=== PATIENT | male | born 1970 | race Two or more races ===

== ENCOUNTER 2019-11-15 04:20 | Inpatient (IN) | payer MEDICAID, OTHER ==
[~2019-11-15] VITALS: Ht 154.9 cm; Wt 63.9 kg
[2019-11-15] VITALS (53 sets, daily range): BP systolic 88–145; BP diastolic 61–97
[2019-11-15 05:55] LABS: Basophils # (auto) 0 10 ^3/uL (0-0.2); Basophils % (auto) 0.2 % (0.0-2.0); Eosinophils # (auto) 0 10 ^3/uL (0-0.8); Eosinophils % (auto) 0.1 % (0.0-7.0); Hematocrit 40.6 % (41.0-53.0); Hemoglobin 14.4 g/dL (13.5-17.5); Lymphocytes # (auto) 0.5 10 ^3/uL (0.4-5.4); Lymphocytes % (auto) 3.4 % (10.0-50.0); Mean Corpuscular Hemoglobin 29.7 pg (28.0-32.0); Mean Corpuscular Hgb Conc. 35.6 g/dL (32.0-36.0); Mean Corpuscular Volume 83.5 fL (80.0-100.0); Monocytes # (auto) 0.4 10 ^3/uL (0-1.3); Monocytes % (auto) 2.6 % (0.0-12.0); Neutrophils # (auto) 14.3 10 ^3/uL (1.6-8.6); Neutrophils % (auto) 93.7 % (37.0-80.0); Platelet Count (auto) 384 10^3/uL (140-450); Red Blood Cells 4.86 10^6/uL (4.5-5.90); Red Cell Distribution Width 13.5 % (11.8-14.3); White Blood Cell 15.2 10^3/uL (4.4-10.8)
[2019-11-15 06:02] LABS: Lactic Acid w/Reflex 2.5 mmol/L (0.4-2.0)
[2019-11-15 06:06] LABS: Albumin 1.7 g/dL (3.4-5.0); Calcium 7.2 mg/dL (8.5-10.1); Potassium 3.4 mmol/L (3.5-5.1)
[2019-11-15 06:14] LABS: BUN/Creatinine Ratio 12.7; Bilirubin, Total 1.1 mg/dL (0.2-1.0); CRP High Sensitivity 15.6 mg/dL (< 0.3); Total Protein 6.5 g/dL (6.4-8.2)
[2019-11-15] MEDS ORDERED: SODIUM CHLORIDE 0.9% 1,000 ML IV ONE ×3 (06:39→06:45)
[2019-11-15] MEDS ORDERED: IOHEXOL 350 MG/ML 100ML IJ ONE (06:57)
[2019-11-15] MEDS ORDERED: DexAMETHasone SOD PHOS 10MG/1ML VIAL INJ IV ONE (07:00)
[2019-11-15] MEDS ORDERED: DOXYCYCLINE 100 MG TAB/CAP PO ONE (07:00)
[2019-11-15] MEDS ORDERED: ZINC SULFATE 220mg CAP or TAB PO ONE (07:00)
[2019-11-15] MEDS ORDERED: chlordiazePOXIDE HCL 25 MG CAP PO PRN (09:00)
[2019-11-15] MEDS ORDERED: SODIUM CHLORIDE 0.9% 1,000 ML IV SCH (09:00)
[2019-11-15] MEDS ORDERED: MORPHINE SULF INJ 2 MG/ML SYRINGE 1ML IV PRN ×3 (09:00)
[2019-11-15] MEDS ORDERED: DEXTROSE (50%) 50ML SYRG IV PRN (09:00)
[2019-11-15] MEDS ORDERED: NITROGLYCERIN 0.4 MG SL TAB SL PRN (09:00)
[2019-11-15] MEDS ORDERED: THIAMINE 100mg/ml INJ (200mg/2ml VIAL) IV ONE (09:00)
[2019-11-15] MEDS ORDERED: LORazepam 2MG/ML-1ML VIAL IV PRN ×2 (09:00→09:05)
[2019-11-15] MEDS ORDERED: PROMETHAZINE HCL 25 MG/ML 1ML IV PRN (09:00)
[2019-11-15] MEDS: BUDESONIDE (INHALATION) 180 MCG IH IN SCH ×2 (10:00→23:11)
[2019-11-15] MEDS ORDERED: levoFLOXacin 500MG 100 ML IV SCH (10:00)
[2019-11-15] MEDS ORDERED: ENOXAPARIN SOD 40 MG/0.4 ML SYRINGE SC SCH (10:00)
[2019-11-15 10:26] LABS: INR 1.2 (0.9-1.15)
[2019-11-15] MEDS: ZINC SULFATE 220mg CAP or TAB PO SCH (10:43)
[2019-11-15] MEDS: InsuLIN REG 1unit/0.01ml Soln (100units/ml) SC SCH ×3 (11:30→23:20)
[2019-11-15] MEDS: ACCU-CHEK COMFORT CURVE STRIP VI SCH ×3 (11:30→22:00)
[2019-11-15] MEDS: DexAMETHasone SOD PHOS 10MG/1ML VIAL INJ IV SCH (11:45)
[2019-11-15] MEDS: chlordiazePOXIDE HCL 5 MG CAP PO SCH ×2 (13:22→18:05)
[2019-11-15] MEDS: ALBUTEROL SULF HFA 90MCG INH 200DOSE IN SCH ×2 (14:50→23:11)
[2019-11-15 15:14] LABS: Urine WBC None Seen /hpf (0 - 3)
[2019-11-15 15:37] LABS: Urine Bacteria NONE SEEN /hpf (None Seen); Urine Blood 1+ /uL (Negative); Urine Hyaline Cast FEW /lpf (0 - 2); Urine Specific Gravity 1.046 (1.001-1.035)
[2019-11-15] MEDS: CLINDAMYCIN 600MG IV 50 ML IV SCH ×2 (16:00→22:41)
[2019-11-15] MEDS ORDERED: POTASSIUM EFFERVESENT TAB 25 MEQ PO ONE (21:45)
[2019-11-16] VITALS (67 sets, daily range): BP systolic 87–147; BP diastolic 55–97
[2019-11-16] MEDS: chlordiazePOXIDE HCL 5 MG CAP PO SCH ×2 (00:22→06:25)
[2019-11-16 04:10] LABS: Basophils # (auto) 0 10 ^3/uL (0-0.2); Basophils % (auto) 0.3 % (0.0-2.0); Eosinophils # (auto) 0 10 ^3/uL (0-0.8); Hematocrit 41.9 % (41.0-53.0); Hemoglobin 14.8 g/dL (13.5-17.5); Lymphocytes # (auto) 0.7 10 ^3/uL (0.4-5.4); Lymphocytes % (auto) 4.6 % (10.0-50.0); Mean Corpuscular Hemoglobin 29.8 pg (28.0-32.0); Mean Corpuscular Hgb Conc. 35.4 g/dL (32.0-36.0); Mean Corpuscular Volume 84.3 fL (80.0-100.0); Monocytes # (auto) 0.5 10 ^3/uL (0-1.3); Monocytes % (auto) 3.1 % (0.0-12.0); Neutrophils # (auto) 14.9 10 ^3/uL (1.6-8.6); Nucleated Red Blood Cells % 0.2 %; Platelet Count (auto) 386 10^3/uL (140-450); Red Blood Cells 4.97 10^6/uL (4.5-5.90); Red Cell Distribution Width 13.7 % (11.8-14.3); White Blood Cell 16.2 10^3/uL (4.4-10.8)
[2019-11-16 04:24] LABS: Albumin 1.7 g/dL (3.4-5.0); Calcium 7.7 mg/dL (8.5-10.1); Potassium 4.1 mmol/L (3.5-5.1)
[2019-11-16 04:27] LABS: BUN/Creatinine Ratio 13.1; Bilirubin, Total 0.6 mg/dL (0.2-1.0); Total Protein 6.7 g/dL (6.4-8.2)
[2019-11-16] MEDS: CLINDAMYCIN 600MG IV 50 ML IV SCH (06:26)
[2019-11-16] MEDS: ACCU-CHEK COMFORT CURVE STRIP VI SCH ×4 (06:26→21:21)
[2019-11-16] MEDS: InsuLIN REG 1unit/0.01ml Soln (100units/ml) SC SCH ×4 (06:31→21:29)
[2019-11-16] MEDS: ALBUTEROL SULF HFA 90MCG INH 200DOSE IN SCH ×3 (06:32→21:06)
[2019-11-16] MEDS: BUDESONIDE (INHALATION) 180 MCG IH IN SCH ×2 (07:29→21:06)
[2019-11-16] MEDS ORDERED: THIAMINE 100mg/ml INJ (200mg/2ml VIAL) IV SCH (10:00)
[2019-11-16] MEDS ORDERED: POTASSIUM CHL 20 Meq TABLET PO ONE (10:15)
[2019-11-16] MEDS ORDERED: FUROSEMIDE 40 MG/4 ML VIAL IV ONE (10:15)
[2019-11-16] MEDS ORDERED: MULTIPLE VITAMINS W/ MINERALS TAB PO ONE (10:15)
[2019-11-16] MEDS ORDERED: THIAMINE HCL 100 MG TAB PO ONE (10:15)
[2019-11-16] MEDS ORDERED: ENOXAPARIN SOD 80 MG/0.8ML SYRINGE SC ONE (10:30)
[2019-11-16] MEDS: DexAMETHasone SOD PHOS 10MG/1ML VIAL INJ IV SCH (11:04)
[2019-11-16] MEDS: ZINC SULFATE 220mg CAP or TAB PO SCH (11:05)
[2019-11-16] MEDS: levoFLOXacin 750MG 150 ML IV SCH (11:27)
[2019-11-16] MEDS: diphenhdrAMINE HCL 50 MG/1 ML VL IV SCH ×2 (11:32→22:58)
[2019-11-16] MEDS: ACETAMINOPHEN 650 mg PER 20 mL UD PO SCH ×2 (11:32→23:05)
[2019-11-16] MEDS ORDERED: levoFLOXacin 750MG 150 ML IV ONE (13:00)
[2019-11-16] MEDS: TOCILIZUMAB 400 MG in SODIUM CHL 0.9% 80 ML IV SCH ×2 (14:04→23:44)
[2019-11-16] MEDS ORDERED: REMDESIVIR 200 MG in NS 210ml LOADING DOSE ADULT IV ONE (17:00)
[2019-11-16] MEDS: FUROSEMIDE 40 MG/4 ML VIAL IV SCH (17:57)
[2019-11-16] MEDS: Glucerna Carbsteady SHAKE Vanilla 8oz PO SCH (18:00)
[2019-11-16] MEDS: POTASSIUM CHL 20 Meq TABLET PO SCH (21:21)
[2019-11-16] MEDS: ENOXAPARIN SOD 80 MG/0.8ML SYRINGE SC SCH (21:21)
[2019-11-16] MEDS ORDERED: methylPREDNISolone SOD SUCC 40 MG/ML VL IV ONE (22:45)
[2019-11-17] VITALS (8 sets, daily range): BP systolic 94–112; BP diastolic 65–85
[2019-11-17 03:28] LABS: Basophils # (auto) 0 10 ^3/uL (0-0.2); Basophils % (auto) 0.1 % (0.0-2.0); Eosinophils # (auto) 0 10 ^3/uL (0-0.8); Hematocrit 37.3 % (41.0-53.0); Lymphocytes # (auto) 0.4 10 ^3/uL (0.4-5.4); Lymphocytes % (auto) 3.8 % (10.0-50.0); Mean Corpuscular Hemoglobin 29.6 pg (28.0-32.0); Mean Corpuscular Hgb Conc. 34.9 g/dL (32.0-36.0); Monocytes # (auto) 0.2 10 ^3/uL (0-1.3); Monocytes % (auto) 1.7 % (0.0-12.0); Neutrophils # (auto) 9.6 10 ^3/uL (1.6-8.6); Neutrophils % (auto) 94.4 % (37.0-80.0); Platelet Count (auto) 322 10^3/uL (140-450); Red Blood Cells 4.38 10^6/uL (4.5-5.90); Red Cell Distribution Width 13.4 % (11.8-14.3); White Blood Cell 10.2 10^3/uL (4.4-10.8)
[2019-11-17 03:49] LABS: Albumin 1.4 g/dL (3.4-5.0); Calcium 7.5 mg/dL (8.5-10.1)
[2019-11-17 03:53] LABS: BUN/Creatinine Ratio 34.1; Bilirubin, Total 0.4 mg/dL (0.2-1.0); Total Protein 5.5 g/dL (6.4-8.2)
[2019-11-17] MEDS: FUROSEMIDE 40 MG/4 ML VIAL IV SCH ×2 (06:00→18:27)
[2019-11-17] MEDS: ALBUTEROL SULF HFA 90MCG INH 200DOSE IN SCH ×2 (07:25→21:25)
[2019-11-17] MEDS: BUDESONIDE (INHALATION) 180 MCG IH IN SCH ×2 (07:26→21:26)
[2019-11-17] MEDS: ACCU-CHEK COMFORT CURVE STRIP VI SCH ×4 (07:41→23:33)
[2019-11-17] MEDS: InsuLIN REG 1unit/0.01ml Soln (100units/ml) SC SCH ×4 (07:42→22:00)
[2019-11-17] MEDS: levoFLOXacin 750MG 150 ML IV SCH (09:35)
[2019-11-17] MEDS: ENOXAPARIN SOD 80 MG/0.8ML SYRINGE SC SCH ×2 (09:36→23:33)
[2019-11-17] MEDS: ZINC SULFATE 220mg CAP or TAB PO SCH (09:36)
[2019-11-17] MEDS: MULTIPLE VITAMINS W/ MINERALS TAB PO SCH (09:36)
[2019-11-17] MEDS: THIAMINE HCL 100 MG TAB PO SCH (09:36)
[2019-11-17] MEDS: POTASSIUM CHL 20 Meq TABLET PO SCH ×2 (09:37→23:32)
[2019-11-17] MEDS: Glucerna Carbsteady SHAKE Vanilla 8oz PO SCH ×2 (09:37→18:00)
[2019-11-17] MEDS ORDERED: DexAMETHasone 4 MG TAB PO ONE (13:45)
[2019-11-17] MEDS: REMDESIVIR 100mg in NS 230ml DAILYx4DAYS (NO VENT) IV SCH (17:05)
[2019-11-18] VITALS (10 sets, daily range): BP systolic 95–107; BP diastolic 58–74
[2019-11-18 04:15] LABS: Basophils # (auto) 0 10 ^3/uL (0-0.2); Basophils % (auto) 0.1 % (0.0-2.0); Eosinophils # (auto) 0.1 10 ^3/uL (0-0.8); Eosinophils % (auto) 1.3 % (0.0-7.0); Hematocrit 42.8 % (41.0-53.0); Hemoglobin 14.8 g/dL (13.5-17.5); Lymphocytes # (auto) 0.9 10 ^3/uL (0.4-5.4); Mean Corpuscular Hemoglobin 29.8 pg (28.0-32.0); Mean Corpuscular Hgb Conc. 34.5 g/dL (32.0-36.0); Mean Corpuscular Volume 86.5 fL (80.0-100.0); Monocytes # (auto) 0.3 10 ^3/uL (0-1.3); Monocytes % (auto) 3.2 % (0.0-12.0); Neutrophils # (auto) 7.2 10 ^3/uL (1.6-8.6); Neutrophils % (auto) 84.4 % (37.0-80.0); Nucleated Red Blood Cells % 0.2 %; Platelet Count (auto) 367 10^3/uL (140-450); Red Blood Cells 4.95 10^6/uL (4.5-5.90); Red Cell Distribution Width 13.9 % (11.8-14.3); White Blood Cell 8.5 10^3/uL (4.4-10.8)
[2019-11-18 04:27] LABS: Albumin 1.7 g/dL (3.4-5.0); Calcium 7.4 mg/dL (8.5-10.1); Potassium 4.1 mmol/L (3.5-5.1)
[2019-11-18 04:30] LABS: BUN/Creatinine Ratio 41.7
[2019-11-18 04:33] LABS: Bilirubin, Total 0.4 mg/dL (0.2-1.0); Total Protein 5.9 g/dL (6.4-8.2)
[2019-11-18] MEDS: ALBUTEROL SULF HFA 90MCG INH 200DOSE IN SCH ×3 (06:21→22:00)
[2019-11-18] MEDS: BUDESONIDE (INHALATION) 180 MCG IH IN SCH ×2 (06:21→22:00)
[2019-11-18] MEDS: ACCU-CHEK COMFORT CURVE STRIP VI SCH ×4 (07:00→23:46)
[2019-11-18] MEDS: InsuLIN REG 1unit/0.01ml Soln (100units/ml) SC SCH ×4 (07:00→23:47)
[2019-11-18] MEDS: Glucerna Carbsteady SHAKE Vanilla 8oz PO SCH ×2 (08:00→18:26)
[2019-11-18] MEDS: FUROSEMIDE 40 MG/4 ML VIAL IV SCH ×2 (09:09→18:00)
[2019-11-18] MEDS: ZINC SULFATE 220mg CAP or TAB PO SCH (10:00)
[2019-11-18] MEDS: ENOXAPARIN SOD 80 MG/0.8ML SYRINGE SC SCH ×2 (10:00→23:46)
[2019-11-18] MEDS: POTASSIUM CHL 20 Meq TABLET PO SCH ×2 (10:00→23:45)
[2019-11-18] MEDS: MULTIPLE VITAMINS W/ MINERALS TAB PO SCH (10:00)
[2019-11-18] MEDS: DexAMETHasone 4 MG TAB PO SCH (12:59)
[2019-11-18] MEDS: THIAMINE HCL 100 MG TAB PO SCH (12:59)
[2019-11-18] MEDS: levoFLOXacin 750MG 150 ML IV SCH (12:59)
[2019-11-18] MEDS: REMDESIVIR 100mg in NS 230ml DAILYx4DAYS (NO VENT) IV SCH (16:43)
[2019-11-19] VITALS (10 sets, daily range): BP systolic 89–114; BP diastolic 60–78
[2019-11-19 04:06] LABS: Basophils # (auto) 0 10 ^3/uL (0-0.2); Basophils % (auto) 0.2 % (0.0-2.0); Eosinophils # (auto) 0.1 10 ^3/uL (0-0.8); Eosinophils % (auto) 0.7 % (0.0-7.0); Hematocrit 41.6 % (41.0-53.0); Hemoglobin 14.2 g/dL (13.5-17.5); Lymphocytes # (auto) 0.7 10 ^3/uL (0.4-5.4); Lymphocytes % (auto) 8.9 % (10.0-50.0); Mean Corpuscular Hemoglobin 29.7 pg (28.0-32.0); Mean Corpuscular Hgb Conc. 34.1 g/dL (32.0-36.0); Mean Corpuscular Volume 87.2 fL (80.0-100.0); Monocytes # (auto) 0.2 10 ^3/uL (0-1.3); Neutrophils # (auto) 6.9 10 ^3/uL (1.6-8.6); Neutrophils % (auto) 87.2 % (37.0-80.0); Nucleated Red Blood Cells % 0.2 %; Platelet Count (auto) 347 10^3/uL (140-450); Red Blood Cells 4.78 10^6/uL (4.5-5.90); Red Cell Distribution Width 13.8 % (11.8-14.3); White Blood Cell 7.9 10^3/uL (4.4-10.8)
[2019-11-19 04:23] LABS: Albumin 1.8 g/dL (3.4-5.0); Calcium 7.6 mg/dL (8.5-10.1); Potassium 4.8 mmol/L (3.5-5.1)
[2019-11-19 04:26] LABS: BUN/Creatinine Ratio 37.8; Bilirubin, Total 0.4 mg/dL (0.2-1.0); Total Protein 5.7 g/dL (6.4-8.2)
[2019-11-19] MEDS: ALBUTEROL SULF HFA 90MCG INH 200DOSE IN SCH ×3 (06:23→21:52)
[2019-11-19] MEDS: BUDESONIDE (INHALATION) 180 MCG IH IN SCH ×2 (06:24→21:51)
[2019-11-19] MEDS: ACCU-CHEK COMFORT CURVE STRIP VI SCH ×4 (06:41→22:35)
[2019-11-19] MEDS: FUROSEMIDE 40 MG/4 ML VIAL IV SCH ×2 (06:42→18:00)
[2019-11-19] MEDS: InsuLIN REG 1unit/0.01ml Soln (100units/ml) SC SCH ×4 (06:42→22:00)
[2019-11-19] MEDS: Glucerna Carbsteady SHAKE Vanilla 8oz PO SCH (08:00)
[2019-11-19] MEDS: ENOXAPARIN SOD 80 MG/0.8ML SYRINGE SC SCH ×2 (10:00→22:35)
[2019-11-19] MEDS: MULTIPLE VITAMINS W/ MINERALS TAB PO SCH (10:17)
[2019-11-19] MEDS: levoFLOXacin 750MG 150 ML IV SCH (10:17)
[2019-11-19] MEDS: DexAMETHasone 4 MG TAB PO SCH (10:17)
[2019-11-19] MEDS: THIAMINE HCL 100 MG TAB PO SCH (10:17)
[2019-11-19] MEDS: POTASSIUM CHL 20 Meq TABLET PO SCH ×2 (10:17→22:34)
[2019-11-19] MEDS: ZINC SULFATE 220mg CAP or TAB PO SCH (10:17)
[2019-11-19] MEDS: Ensure HIGH Protein Chocolate 8oz Bottle PO SCH ×2 (12:00→18:12)
[2019-11-19] MEDS: REMDESIVIR 100mg in NS 230ml DAILYx4DAYS (NO VENT) IV SCH (17:00)
[2019-11-19] MEDS: DexAMETHasone SOD PHOS 10MG/1ML VIAL INJ IV SCH (22:34)
[2019-11-20] VITALS (12 sets, daily range): BP systolic 91–119; BP diastolic 58–83
[2019-11-20 05:22] LABS: Basophils # (auto) 0 10 ^3/uL (0-0.2); Eosinophils # (auto) 0 10 ^3/uL (0-0.8); Eosinophils % (auto) 0.1 % (0.0-7.0); Hematocrit 44.1 % (41.0-53.0); Hemoglobin 14.5 g/dL (13.5-17.5); Lymphocytes # (auto) 0.5 10 ^3/uL (0.4-5.4); Lymphocytes % (auto) 5.8 % (10.0-50.0); Mean Corpuscular Hemoglobin 29.1 pg (28.0-32.0); Mean Corpuscular Volume 88.2 fL (80.0-100.0); Monocytes # (auto) 0.1 10 ^3/uL (0-1.3); Monocytes % (auto) 1.6 % (0.0-12.0); Neutrophils # (auto) 8.7 10 ^3/uL (1.6-8.6); Neutrophils % (auto) 92.5 % (37.0-80.0); Platelet Count (auto) 310 10^3/uL (140-450); Red Cell Distribution Width 13.7 % (11.8-14.3); White Blood Cell 9.4 10^3/uL (4.4-10.8)
[2019-11-20 05:34] LABS: Albumin 2.1 g/dL (3.4-5.0); Calcium 7.9 mg/dL (8.5-10.1); Potassium 5.2 mmol/L (3.5-5.1)
[2019-11-20 05:37] LABS: BUN/Creatinine Ratio 33.9; Bilirubin, Total 0.5 mg/dL (0.2-1.0); Total Protein 5.9 g/dL (6.4-8.2)
[2019-11-20] MEDS: ALBUTEROL SULF HFA 90MCG INH 200DOSE IN SCH ×3 (06:40→22:00)
[2019-11-20] MEDS: BUDESONIDE (INHALATION) 180 MCG IH IN SCH ×2 (06:40→22:00)
[2019-11-20] MEDS: ACCU-CHEK COMFORT CURVE STRIP VI SCH ×4 (06:56→22:03)
[2019-11-20] MEDS: InsuLIN REG 1unit/0.01ml Soln (100units/ml) SC SCH ×4 (07:00→22:03)
[2019-11-20] MEDS: FUROSEMIDE 40 MG/4 ML VIAL IV SCH ×2 (07:50→18:00)
[2019-11-20] MEDS: Ensure HIGH Protein Chocolate 8oz Bottle PO SCH ×3 (08:00→18:00)
[2019-11-20] MEDS: MULTIPLE VITAMINS W/ MINERALS TAB PO SCH (10:00)
[2019-11-20] MEDS: THIAMINE HCL 100 MG TAB PO SCH (10:00)
[2019-11-20] MEDS: levoFLOXacin 750MG 150 ML IV SCH (10:00)
[2019-11-20] MEDS: ENOXAPARIN SOD 80 MG/0.8ML SYRINGE SC SCH ×2 (10:00→22:03)
[2019-11-20] MEDS: DexAMETHasone SOD PHOS 10MG/1ML VIAL INJ IV SCH ×2 (10:00→22:03)
[2019-11-20] MEDS: ZINC SULFATE 220mg CAP or TAB PO SCH (10:00)
[2019-11-20] MEDS: POTASSIUM CHL 20 Meq TABLET PO SCH (10:00)
[2019-11-20] MEDS: REMDESIVIR 100mg in NS 230ml DAILYx4DAYS (NO VENT) IV SCH (17:01)
[2019-11-21] VITALS (14 sets, daily range): BP systolic 90–112; BP diastolic 46–83
[2019-11-21 04:14] LABS: Basophils # (auto) 0 10 ^3/uL (0-0.2); Basophils % (auto) 0.4 % (0.0-2.0); Eosinophils # (auto) 0 10 ^3/uL (0-0.8); Eosinophils % (auto) 0.2 % (0.0-7.0); Hematocrit 43.8 % (41.0-53.0); Hemoglobin 14.6 g/dL (13.5-17.5); Lymphocytes # (auto) 0.6 10 ^3/uL (0.4-5.4); Lymphocytes % (auto) 5.2 % (10.0-50.0); Mean Corpuscular Hemoglobin 28.8 pg (28.0-32.0); Mean Corpuscular Hgb Conc. 33.4 g/dL (32.0-36.0); Mean Corpuscular Volume 86.2 fL (80.0-100.0); Monocytes # (auto) 0.3 10 ^3/uL (0-1.3); Monocytes % (auto) 2.6 % (0.0-12.0); Neutrophils # (auto) 10.2 10 ^3/uL (1.6-8.6); Neutrophils % (auto) 91.6 % (37.0-80.0); Nucleated Red Blood Cells % 0.1 %; Platelet Count (auto) 289 10^3/uL (140-450); Red Blood Cells 5.08 10^6/uL (4.5-5.90); Red Cell Distribution Width 13.7 % (11.8-14.3); White Blood Cell 11.1 10^3/uL (4.4-10.8)
[2019-11-21 04:34] LABS: Albumin 2.3 g/dL (3.4-5.0); Calcium 7.7 mg/dL (8.5-10.1); Potassium 4.2 mmol/L (3.5-5.1)
[2019-11-21 04:37] LABS: BUN/Creatinine Ratio 42.9; Bilirubin, Total 0.5 mg/dL (0.2-1.0); Total Protein 6.1 g/dL (6.4-8.2)
[2019-11-21] MEDS: ACCU-CHEK COMFORT CURVE STRIP VI SCH ×4 (06:02→21:17)
[2019-11-21] MEDS: InsuLIN REG 1unit/0.01ml Soln (100units/ml) SC SCH ×4 (06:02→21:20)
[2019-11-21] MEDS: FUROSEMIDE 40 MG/4 ML VIAL IV SCH ×2 (06:03→18:02)
[2019-11-21] MEDS: ALBUTEROL SULF HFA 90MCG INH 200DOSE IN SCH ×3 (07:58→22:46)
[2019-11-21] MEDS: BUDESONIDE (INHALATION) 180 MCG IH IN SCH ×2 (07:58→22:46)
[2019-11-21] MEDS: Ensure HIGH Protein Chocolate 8oz Bottle PO SCH ×3 (08:00→18:05)
[2019-11-21] MEDS: levoFLOXacin 750MG 150 ML IV SCH (10:00)
[2019-11-21] MEDS: ENOXAPARIN SOD 80 MG/0.8ML SYRINGE SC SCH ×2 (10:00→21:17)
[2019-11-21] MEDS: THIAMINE HCL 100 MG TAB PO SCH (10:00)
[2019-11-21] MEDS: ZINC SULFATE 220mg CAP or TAB PO SCH (10:00)
[2019-11-21] MEDS: MULTIPLE VITAMINS W/ MINERALS TAB PO SCH (10:00)
[2019-11-21] MEDS: DexAMETHasone SOD PHOS 10MG/1ML VIAL INJ IV SCH ×2 (10:00→21:16)
[2019-11-22] VITALS (10 sets, daily range): BP systolic 100–112; BP diastolic 63–83
[2019-11-22 06:23] LABS: Basophils # (auto) 0 10 ^3/uL (0-0.2); Basophils % (auto) 0.2 % (0.0-2.0); Eosinophils # (auto) 0 10 ^3/uL (0-0.8); Eosinophils % (auto) 0.1 % (0.0-7.0); Hematocrit 45.8 % (41.0-53.0); Hemoglobin 15.5 g/dL (13.5-17.5); Lymphocytes # (auto) 0.8 10 ^3/uL (0.4-5.4); Lymphocytes % (auto) 7.5 % (10.0-50.0); Mean Corpuscular Hemoglobin 29.6 pg (28.0-32.0); Mean Corpuscular Hgb Conc. 33.7 g/dL (32.0-36.0); Mean Corpuscular Volume 87.7 fL (80.0-100.0); Monocytes # (auto) 0.5 10 ^3/uL (0-1.3); Monocytes % (auto) 4.5 % (0.0-12.0); Neutrophils # (auto) 9.1 10 ^3/uL (1.6-8.6); Neutrophils % (auto) 87.7 % (37.0-80.0); Nucleated Red Blood Cells % 0.5 %; Platelet Count (auto) 264 10^3/uL (140-450); Red Blood Cells 5.23 10^6/uL (4.5-5.90); Red Cell Distribution Width 13.9 % (11.8-14.3); White Blood Cell 10.4 10^3/uL (4.4-10.8)
[2019-11-22] MEDS: FUROSEMIDE 40 MG/4 ML VIAL IV SCH ×2 (06:30→17:46)
[2019-11-22] MEDS: ACCU-CHEK COMFORT CURVE STRIP VI SCH ×4 (06:30→22:00)
[2019-11-22] MEDS: InsuLIN REG 1unit/0.01ml Soln (100units/ml) SC SCH ×4 (06:33→22:00)
[2019-11-22 06:44] LABS: Albumin 2.5 g/dL (3.4-5.0); Potassium 4.1 mmol/L (3.5-5.1)
[2019-11-22 06:48] LABS: BUN/Creatinine Ratio 46.7; Bilirubin, Total 0.6 mg/dL (0.2-1.0); Total Protein 6.2 g/dL (6.4-8.2)
[2019-11-22] MEDS: Ensure HIGH Protein Chocolate 8oz Bottle PO SCH ×3 (08:00→17:32)
[2019-11-22] MEDS: levoFLOXacin 750MG 150 ML IV SCH (09:13)
[2019-11-22] MEDS: DexAMETHasone SOD PHOS 10MG/1ML VIAL INJ IV SCH ×2 (09:13→22:00)
[2019-11-22] MEDS: THIAMINE HCL 100 MG TAB PO SCH (09:13)
[2019-11-22] MEDS: ENOXAPARIN SOD 80 MG/0.8ML SYRINGE SC SCH ×2 (09:14→22:00)
[2019-11-22] MEDS: MULTIPLE VITAMINS W/ MINERALS TAB PO SCH (09:14)
[2019-11-22] MEDS: ZINC SULFATE 220mg CAP or TAB PO SCH (09:14)
[2019-11-22] MEDS: ALBUTEROL SULF HFA 90MCG INH 200DOSE IN SCH ×3 (10:14→21:56)
[2019-11-22] MEDS: BUDESONIDE (INHALATION) 180 MCG IH IN SCH ×2 (10:14→21:56)
[2019-11-22] MEDS: chlordiazePOXIDE HCL 5 MG CAP PO SCH ×2 (17:46→22:00)
[2019-11-23] VITALS (12 sets, daily range): BP systolic 93–120; BP diastolic 63–91
[2019-11-23 03:15] LABS: Basophils # (auto) 0.1 10 ^3/uL (0-0.2); Basophils % (auto) 0.6 % (0.0-2.0); Eosinophils # (auto) 0 10 ^3/uL (0-0.8); Eosinophils % (auto) 0.2 % (0.0-7.0); Hematocrit 46.5 % (41.0-53.0); Hemoglobin 15.7 g/dL (13.5-17.5); Lymphocytes # (auto) 0.8 10 ^3/uL (0.4-5.4); Lymphocytes % (auto) 7.7 % (10.0-50.0); Mean Corpuscular Hemoglobin 29.5 pg (28.0-32.0); Mean Corpuscular Hgb Conc. 33.7 g/dL (32.0-36.0); Mean Corpuscular Volume 87.6 fL (80.0-100.0); Monocytes # (auto) 0.3 10 ^3/uL (0-1.3); Monocytes % (auto) 2.6 % (0.0-12.0); Neutrophils # (auto) 9.6 10 ^3/uL (1.6-8.6); Neutrophils % (auto) 88.9 % (37.0-80.0); Platelet Count (auto) 230 10^3/uL (140-450); Red Blood Cells 5.31 10^6/uL (4.5-5.90); White Blood Cell 10.8 10^3/uL (4.4-10.8)
[2019-11-23 03:31] LABS: Albumin 2.5 g/dL (3.4-5.0); Calcium 7.9 mg/dL (8.5-10.1); Potassium 3.8 mmol/L (3.5-5.1)
[2019-11-23 03:35] LABS: BUN/Creatinine Ratio 56.9; Bilirubin, Total 0.5 mg/dL (0.2-1.0)
[2019-11-23] MEDS: ALBUTEROL SULF HFA 90MCG INH 200DOSE IN SCH ×3 (05:57→22:00)
[2019-11-23] MEDS: BUDESONIDE (INHALATION) 180 MCG IH IN SCH ×2 (05:57→22:00)
[2019-11-23] MEDS: FUROSEMIDE 40 MG/4 ML VIAL IV SCH ×2 (06:00→18:08)
[2019-11-23] MEDS: chlordiazePOXIDE HCL 5 MG CAP PO SCH ×4 (06:00→20:09)
[2019-11-23] MEDS: ACCU-CHEK COMFORT CURVE STRIP VI SCH ×3 (07:24→17:00)
[2019-11-23] MEDS: InsuLIN REG 1unit/0.01ml Soln (100units/ml) SC SCH ×3 (07:25→17:00)
[2019-11-23] MEDS: Ensure HIGH Protein Chocolate 8oz Bottle PO SCH ×3 (08:00→18:08)
[2019-11-23] MEDS: THIAMINE HCL 100 MG TAB PO SCH (10:21)
[2019-11-23] MEDS: DexAMETHasone SOD PHOS 10MG/1ML VIAL INJ IV SCH ×2 (10:21→20:09)
[2019-11-23] MEDS: ZINC SULFATE 220mg CAP or TAB PO SCH (10:21)
[2019-11-23] MEDS: MULTIPLE VITAMINS W/ MINERALS TAB PO SCH (10:21)
[2019-11-23] MEDS: ENOXAPARIN SOD 80 MG/0.8ML SYRINGE SC SCH ×2 (10:21→20:09)
[2019-11-23] MEDS: levoFLOXacin 750MG 150 ML IV SCH (10:21)
[2019-11-24] VITALS (10 sets, daily range): BP systolic 93–107; BP diastolic 63–74
[2019-11-24] MEDS: InsuLIN REG 1unit/0.01ml Soln (100units/ml) SC SCH ×5 (00:58→23:35)
[2019-11-24] MEDS: ACCU-CHEK COMFORT CURVE STRIP VI SCH ×5 (00:59→23:34)
[2019-11-24] MEDS: chlordiazePOXIDE HCL 5 MG CAP PO SCH ×4 (05:55→23:34)
[2019-11-24] MEDS: FUROSEMIDE 40 MG/4 ML VIAL IV SCH ×2 (05:55→18:22)
[2019-11-24] MEDS: ALBUTEROL SULF HFA 90MCG INH 200DOSE IN SCH ×3 (06:16→23:09)
[2019-11-24] MEDS: BUDESONIDE (INHALATION) 180 MCG IH IN SCH ×2 (06:17→23:09)
[2019-11-24] MEDS: Ensure HIGH Protein Chocolate 8oz Bottle PO SCH ×3 (08:00→18:22)
[2019-11-24] MEDS: MULTIPLE VITAMINS W/ MINERALS TAB PO SCH (10:17)
[2019-11-24] MEDS: levoFLOXacin 750MG 150 ML IV SCH (10:17)
[2019-11-24] MEDS: ENOXAPARIN SOD 80 MG/0.8ML SYRINGE SC SCH ×2 (10:17→23:34)
[2019-11-24] MEDS: DexAMETHasone SOD PHOS 10MG/1ML VIAL INJ IV SCH ×2 (10:17→23:34)
[2019-11-24] MEDS: ZINC SULFATE 220mg CAP or TAB PO SCH (10:17)
[2019-11-24] MEDS: THIAMINE HCL 100 MG TAB PO SCH (10:17)
[2019-11-25] VITALS (11 sets, daily range): BP systolic 82–107; BP diastolic 54–75
[2019-11-25] MEDS: chlordiazePOXIDE HCL 5 MG CAP PO SCH ×4 (06:52→23:58)
[2019-11-25] MEDS: FUROSEMIDE 40 MG/4 ML VIAL IV SCH ×2 (06:52→17:39)
[2019-11-25] MEDS: ACCU-CHEK COMFORT CURVE STRIP VI SCH ×4 (06:54→23:58)
[2019-11-25] MEDS: InsuLIN REG 1unit/0.01ml Soln (100units/ml) SC SCH ×4 (06:59→23:59)
[2019-11-25] MEDS: Ensure HIGH Protein Chocolate 8oz Bottle PO SCH ×3 (08:28→17:39)
[2019-11-25 09:14] LABS: Potassium 3.3 mmol/L (3.5-5.1)
[2019-11-25] MEDS: DexAMETHasone SOD PHOS 10MG/1ML VIAL INJ IV SCH ×2 (10:00→23:57)
[2019-11-25] MEDS: levoFLOXacin 750MG 150 ML IV SCH (10:00)
[2019-11-25] MEDS: ENOXAPARIN SOD 80 MG/0.8ML SYRINGE SC SCH ×2 (10:00→23:58)
[2019-11-25] MEDS: ZINC SULFATE 220mg CAP or TAB PO SCH (10:00)
[2019-11-25] MEDS: THIAMINE HCL 100 MG TAB PO SCH (10:00)
[2019-11-25] MEDS: MULTIPLE VITAMINS W/ MINERALS TAB PO SCH (10:00)
[2019-11-25] MEDS ORDERED: POTASSIUM CHL 20 Meq TABLET PO ONE (10:15)
[2019-11-25] MEDS: BUDESONIDE (INHALATION) 180 MCG IH IN SCH ×2 (16:48→22:57)
[2019-11-25] MEDS: ALBUTEROL SULF HFA 90MCG INH 200DOSE IN SCH ×3 (16:48→22:57)
[2019-11-25] MEDS: POTASSIUM CHL 10 Meq TABLET PO SCH (23:58)
[2019-11-26] VITALS (10 sets, daily range): BP systolic 98–112; BP diastolic 52–81
[2019-11-26] MEDS: FUROSEMIDE 40 MG/4 ML VIAL IV SCH ×2 (06:57→17:45)
[2019-11-26] MEDS: ACCU-CHEK COMFORT CURVE STRIP VI SCH ×4 (06:58→20:31)
[2019-11-26] MEDS: chlordiazePOXIDE HCL 5 MG CAP PO SCH ×4 (06:58→20:31)
[2019-11-26] MEDS: InsuLIN REG 1unit/0.01ml Soln (100units/ml) SC SCH ×4 (06:59→20:32)
[2019-11-26] MEDS: ALBUTEROL SULF HFA 90MCG INH 200DOSE IN SCH ×3 (07:04→22:52)
[2019-11-26] MEDS: BUDESONIDE (INHALATION) 180 MCG IH IN SCH ×2 (07:05→22:52)
[2019-11-26] MEDS: Ensure HIGH Protein Chocolate 8oz Bottle PO SCH ×3 (08:18→17:49)
[2019-11-26 08:35] LABS: Calcium 8.2 mg/dL (8.5-10.1); Potassium 3.9 mmol/L (3.5-5.1)
[2019-11-26] MEDS: ENOXAPARIN SOD 80 MG/0.8ML SYRINGE SC SCH ×2 (10:00→20:31)
[2019-11-26] MEDS: DexAMETHasone SOD PHOS 10MG/1ML VIAL INJ IV SCH ×2 (10:00→20:31)
[2019-11-26] MEDS: MULTIPLE VITAMINS W/ MINERALS TAB PO SCH (10:00)
[2019-11-26] MEDS: levoFLOXacin 750MG 150 ML IV SCH (10:00)
[2019-11-26] MEDS: POTASSIUM CHL 10 Meq TABLET PO SCH ×2 (10:00→20:31)
[2019-11-26] MEDS: ZINC SULFATE 220mg CAP or TAB PO SCH (10:00)
[2019-11-26] MEDS: THIAMINE HCL 100 MG TAB PO SCH (10:00)
[2019-11-27] VITALS (9 sets, daily range): BP systolic 89–119; BP diastolic 56–77
[2019-11-27] MEDS: ACCU-CHEK COMFORT CURVE STRIP VI SCH ×4 (05:37→22:18)
[2019-11-27] MEDS: chlordiazePOXIDE HCL 5 MG CAP PO SCH ×4 (05:37→22:23)
[2019-11-27] MEDS: FUROSEMIDE 40 MG/4 ML VIAL IV SCH ×2 (05:37→17:39)
[2019-11-27] MEDS: InsuLIN REG 1unit/0.01ml Soln (100units/ml) SC SCH ×4 (05:58→22:32)
[2019-11-27] MEDS: ALBUTEROL SULF HFA 90MCG INH 200DOSE IN SCH ×3 (06:44→22:14)
[2019-11-27] MEDS: BUDESONIDE (INHALATION) 180 MCG IH IN SCH ×2 (06:44→22:14)
[2019-11-27] MEDS: MULTIPLE VITAMINS W/ MINERALS TAB PO SCH (08:17)
[2019-11-27] MEDS: POTASSIUM CHL 10 Meq TABLET PO SCH ×2 (08:17→22:23)
[2019-11-27] MEDS: ZINC SULFATE 220mg CAP or TAB PO SCH (08:17)
[2019-11-27] MEDS: Ensure HIGH Protein Chocolate 8oz Bottle PO SCH ×3 (08:18→17:39)
[2019-11-27] MEDS: ENOXAPARIN SOD 80 MG/0.8ML SYRINGE SC SCH ×2 (08:18→22:24)
[2019-11-27] MEDS: THIAMINE HCL 100 MG TAB PO SCH (08:18)
[2019-11-27] MEDS: DexAMETHasone SOD PHOS 10MG/1ML VIAL INJ IV SCH ×2 (10:31→22:23)
[2019-11-27] MEDS: levoFLOXacin 750MG 150 ML IV SCH (10:31)
[2019-11-28] VITALS: BP 85/61
[2019-11-28 04:00] VITALS: BP 97/72
[2019-11-28] MEDS: FUROSEMIDE 40 MG/4 ML VIAL IV SCH (05:12)
[2019-11-28] MEDS: chlordiazePOXIDE HCL 5 MG CAP PO SCH ×4 (05:13→22:13)
[2019-11-28] MEDS: ACCU-CHEK COMFORT CURVE STRIP VI SCH ×4 (05:13→22:09)
[2019-11-28] MEDS: InsuLIN REG 1unit/0.01ml Soln (100units/ml) SC SCH ×4 (05:26→22:17)
[2019-11-28] MEDS: ALBUTEROL SULF HFA 90MCG INH 200DOSE IN SCH ×3 (06:19→22:30)
[2019-11-28] MEDS: BUDESONIDE (INHALATION) 180 MCG IH IN SCH ×2 (06:19→22:30)
[2019-11-28 07:35] VITALS: BP 104/67
[2019-11-28] MEDS: Ensure HIGH Protein Chocolate 8oz Bottle PO SCH ×3 (07:47→17:41)
[2019-11-28] MEDS: THIAMINE HCL 100 MG TAB PO SCH (09:14)
[2019-11-28] MEDS: MULTIPLE VITAMINS W/ MINERALS TAB PO SCH (09:14)
[2019-11-28] MEDS: levoFLOXacin 750MG 150 ML IV SCH (09:14)
[2019-11-28] MEDS: DexAMETHasone SOD PHOS 10MG/1ML VIAL INJ IV SCH ×2 (09:14→22:14)
[2019-11-28] MEDS: POTASSIUM CHL 10 Meq TABLET PO SCH (09:14)
[2019-11-28] MEDS: ZINC SULFATE 220mg CAP or TAB PO SCH (09:14)
[2019-11-28] MEDS: ENOXAPARIN SOD 80 MG/0.8ML SYRINGE SC SCH ×2 (09:15→22:13)
[2019-11-28 11:45] VITALS: BP 93/62
[2019-11-28 15:35] VITALS: BP 107/63
[2019-11-28 20:00] VITALS: BP 113/64
[2019-11-29 00:06] VITALS: BP 92/64
[2019-11-29 05:00] VITALS: BP 110/72
[2019-11-29] MEDS: chlordiazePOXIDE HCL 5 MG CAP PO SCH ×3 (06:21→22:31)
[2019-11-29] MEDS: ACCU-CHEK COMFORT CURVE STRIP VI SCH ×4 (06:21→22:00)
[2019-11-29] MEDS: InsuLIN REG 1unit/0.01ml Soln (100units/ml) SC SCH ×4 (06:21→23:02)
[2019-11-29 07:22] LABS: Basophils # (auto) 0 10 ^3/uL (0-0.2); Basophils % (auto) 0.3 % (0.0-2.0); Eosinophils # (auto) 0 10 ^3/uL (0-0.8); Hematocrit 38.1 % (41.0-53.0); Hemoglobin 12.7 g/dL (13.5-17.5); Lymphocytes # (auto) 0.8 10 ^3/uL (0.4-5.4); Lymphocytes % (auto) 5.6 % (10.0-50.0); Mean Corpuscular Hemoglobin 29.2 pg (28.0-32.0); Mean Corpuscular Hgb Conc. 33.5 g/dL (32.0-36.0); Mean Corpuscular Volume 87.1 fL (80.0-100.0); Monocytes # (auto) 0.3 10 ^3/uL (0-1.3); Neutrophils % (auto) 92.1 % (37.0-80.0); Nucleated Red Blood Cells % 0.1 %; Platelet Count (auto) 131 10^3/uL (140-450); Red Blood Cells 4.37 10^6/uL (4.5-5.90); White Blood Cell 14.2 10^3/uL (4.4-10.8)
[2019-11-29] MEDS: ALBUTEROL SULF HFA 90MCG INH 200DOSE IN SCH ×3 (07:55→21:20)
[2019-11-29] MEDS: BUDESONIDE (INHALATION) 180 MCG IH IN SCH ×2 (07:55→21:20)
[2019-11-29 07:59] LABS: Potassium 4.3 mmol/L (3.5-5.1)
[2019-11-29] MEDS: Ensure HIGH Protein Chocolate 8oz Bottle PO SCH (08:00)
[2019-11-29 08:07] LABS: Albumin 2.2 g/dL (3.4-5.0); BUN/Creatinine Ratio 64.3; Bilirubin, Total 0.4 mg/dL (0.2-1.0); Calcium 7.6 mg/dL (8.5-10.1)
[2019-11-29] MEDS ORDERED: FUROSEMIDE 40 MG/4 ML VIAL IV SCH (10:00)
[2019-11-29] MEDS: ENOXAPARIN SOD 80 MG/0.8ML SYRINGE SC SCH ×2 (10:00→22:32)
[2019-11-29] MEDS: THIAMINE HCL 100 MG TAB PO SCH (10:00)
[2019-11-29] MEDS: DexAMETHasone 4 MG TAB PO SCH ×2 (10:33→22:32)
[2019-11-29] MEDS: MULTIPLE VITAMINS W/ MINERALS TAB PO SCH (10:34)
[2019-11-29] MEDS: ZINC SULFATE 220mg CAP or TAB PO SCH (10:34)
[2019-11-29] MEDS: levoFLOXacin 750MG 150 ML IV SCH (10:36)
[2019-11-29] MEDS: POTASSIUM CHL 10 Meq TABLET PO SCH (10:36)
[2019-11-29] MEDS: FUROSEMIDE 40 MG TAB PO SCH (10:36)
[2019-11-29 17:00] VITALS: BP 93/68
[2019-11-29 20:38] VITALS: BP 93/68
[2019-11-29 22:00] VITALS: BP 93/47
[2019-11-30 06:00] VITALS: BP 104/73
[2019-11-30] MEDS: ACCU-CHEK COMFORT CURVE STRIP VI SCH ×4 (06:59→21:19)
[2019-11-30] MEDS: InsuLIN REG 1unit/0.01ml Soln (100units/ml) SC SCH ×4 (07:02→21:24)
[2019-11-30] MEDS: BUDESONIDE (INHALATION) 180 MCG IH IN SCH ×2 (07:49→22:18)
[2019-11-30] MEDS: ALBUTEROL SULF HFA 90MCG INH 200DOSE IN SCH ×3 (07:49→22:18)
[2019-11-30] MEDS: Ensure HIGH Protein Chocolate 8oz Bottle PO SCH ×3 (08:00→18:59)
[2019-11-30] MEDS: THIAMINE HCL 100 MG TAB PO SCH (09:43)
[2019-11-30] MEDS: DexAMETHasone 4 MG TAB PO SCH ×2 (09:43→21:19)
[2019-11-30] MEDS: ZINC SULFATE 220mg CAP or TAB PO SCH (09:43)
[2019-11-30] MEDS: levoFLOXacin 750MG 150 ML IV SCH (09:43)
[2019-11-30] MEDS: FUROSEMIDE 40 MG TAB PO SCH (09:44)
[2019-11-30] MEDS: POTASSIUM CHL 10 Meq TABLET PO SCH (09:44)
[2019-11-30] MEDS: chlordiazePOXIDE HCL 5 MG CAP PO SCH ×2 (09:44→21:19)
[2019-11-30] MEDS: MULTIPLE VITAMINS W/ MINERALS TAB PO SCH (09:45)
[2019-11-30] MEDS: ENOXAPARIN SOD 80 MG/0.8ML SYRINGE SC SCH (10:00)
[2019-11-30 12:00] VITALS: BP 97/51
[2019-11-30 17:00] VITALS: BP 97/71
[2019-11-30 22:00] VITALS: BP 92/59
[2019-12-01 05:00] VITALS: BP 94/64
[2019-12-01] MEDS: InsuLIN REG 1unit/0.01ml Soln (100units/ml) SC SCH ×4 (06:41→22:10)
[2019-12-01] MEDS: ACCU-CHEK COMFORT CURVE STRIP VI SCH ×4 (06:41→22:09)
[2019-12-01 07:26] LABS: Basophils # (auto) 0 10 ^3/uL (0-0.2); Eosinophils # (auto) 0 10 ^3/uL (0-0.8); Eosinophils % (auto) 0.1 % (0.0-7.0); Hematocrit 28.7 % (41.0-53.0); Hemoglobin 9.7 g/dL (13.5-17.5); Lymphocytes # (auto) 0.9 10 ^3/uL (0.4-5.4); Lymphocytes % (auto) 7.2 % (10.0-50.0); Mean Corpuscular Hemoglobin 29.4 pg (28.0-32.0); Mean Corpuscular Hgb Conc. 33.7 g/dL (32.0-36.0); Mean Corpuscular Volume 87.2 fL (80.0-100.0); Monocytes # (auto) 0.3 10 ^3/uL (0-1.3); Monocytes % (auto) 2.4 % (0.0-12.0); Neutrophils # (auto) 10.8 10 ^3/uL (1.6-8.6); Neutrophils % (auto) 90.3 % (37.0-80.0); Platelet Count (auto) 125 10^3/uL (140-450); Red Blood Cells 3.29 10^6/uL (4.5-5.90); Red Cell Distribution Width 14.2 % (11.8-14.3); White Blood Cell 11.9 10^3/uL (4.4-10.8)
[2019-12-01] MEDS: BUDESONIDE (INHALATION) 180 MCG IH IN SCH ×2 (07:32→23:11)
[2019-12-01] MEDS: ALBUTEROL SULF HFA 90MCG INH 200DOSE IN SCH ×3 (07:32→23:11)
[2019-12-01 07:39] LABS: Albumin 2.3 g/dL (3.4-5.0); Calcium 7.7 mg/dL (8.5-10.1); Potassium 4.5 mmol/L (3.5-5.1)
[2019-12-01 07:44] LABS: BUN/Creatinine Ratio 58.3; Bilirubin, Total 0.4 mg/dL (0.2-1.0); Total Protein 4.6 g/dL (6.4-8.2)
[2019-12-01] MEDS: Ensure HIGH Protein Chocolate 8oz Bottle PO SCH ×2 (08:00→12:06)
[2019-12-01 09:00] VITALS: BP 97/56
[2019-12-01] MEDS: THIAMINE HCL 100 MG TAB PO SCH (09:30)
[2019-12-01] MEDS: ZINC SULFATE 220mg CAP or TAB PO SCH (09:31)
[2019-12-01] MEDS: DexAMETHasone 4 MG TAB PO SCH ×2 (09:31→21:46)
[2019-12-01] MEDS: MULTIPLE VITAMINS W/ MINERALS TAB PO SCH (09:31)
[2019-12-01] MEDS: chlordiazePOXIDE HCL 5 MG CAP PO SCH ×2 (10:23→21:46)
[2019-12-01 12:51] VITALS: BP 100/65
[2019-12-01] MEDS: Glucerna Carbsteady SHAKE Stawberry 8oz PO SCH (18:00)
[2019-12-01] MEDS ORDERED: ENSURE CLEAR Mixed Berry 8oz Carton PO SCH (18:00)
[2019-12-01] MEDS ORDERED: Glucerna Carbsteady SHAKE Vanilla 8oz PO SCH (18:00)
[2019-12-01 22:00] VITALS: BP 100/59
[2019-12-02 05:30] VITALS: BP 96/78
[2019-12-02] MEDS: InsuLIN REG 1unit/0.01ml Soln (100units/ml) SC SCH ×4 (06:31→21:32)
[2019-12-02] MEDS: ACCU-CHEK COMFORT CURVE STRIP VI SCH ×4 (06:32→21:33)
[2019-12-02] MEDS: ALBUTEROL SULF HFA 90MCG INH 200DOSE IN SCH ×3 (07:19→21:36)
[2019-12-02] MEDS: BUDESONIDE (INHALATION) 180 MCG IH IN SCH ×2 (07:19→21:37)
[2019-12-02] MEDS: Glucerna Carbsteady SHAKE Stawberry 8oz PO SCH ×2 (08:00→18:08)
[2019-12-02 08:58] VITALS: BP 108/73
[2019-12-02] MEDS: ZINC SULFATE 220mg CAP or TAB PO SCH (10:02)
[2019-12-02] MEDS: THIAMINE HCL 100 MG TAB PO SCH (10:02)
[2019-12-02] MEDS: DexAMETHasone 4 MG TAB PO SCH ×2 (10:03→21:33)
[2019-12-02] MEDS: MULTIPLE VITAMINS W/ MINERALS TAB PO SCH (10:03)
[2019-12-02] MEDS: chlordiazePOXIDE HCL 5 MG CAP PO SCH ×2 (10:03→21:33)
[2019-12-02 13:08] VITALS: BP 105/69
[2019-12-02] MEDS ORDERED: ENOXAPARIN SOD 40 MG/0.4 ML SYRINGE SC ONE (13:45)
[2019-12-02 17:27] VITALS: BP 105/71
[2019-12-02 19:28] VITALS: BP 105/71
[2019-12-02 22:00] VITALS: BP 105/67
[2019-12-03] MEDS: ACCU-CHEK COMFORT CURVE STRIP VI SCH ×4 (06:32→22:11)
[2019-12-03] MEDS: InsuLIN REG 1unit/0.01ml Soln (100units/ml) SC SCH ×4 (06:33→22:15)
[2019-12-03] MEDS: ALBUTEROL SULF HFA 90MCG INH 200DOSE IN SCH ×3 (07:54→23:02)
[2019-12-03] MEDS: BUDESONIDE (INHALATION) 180 MCG IH IN SCH ×2 (07:54→23:03)
[2019-12-03] MEDS: Glucerna Carbsteady SHAKE Stawberry 8oz PO SCH ×2 (08:00→18:00)
[2019-12-03 09:00] VITALS: BP 113/74
[2019-12-03] MEDS: ENOXAPARIN SOD 40 MG/0.4 ML SYRINGE SC SCH (10:00)
[2019-12-03] MEDS: DexAMETHasone 4 MG TAB PO SCH (10:04)
[2019-12-03] MEDS: MULTIPLE VITAMINS W/ MINERALS TAB PO SCH (10:04)
[2019-12-03] MEDS: chlordiazePOXIDE HCL 5 MG CAP PO SCH ×2 (10:04→21:17)
[2019-12-03] MEDS: ZINC SULFATE 220mg CAP or TAB PO SCH (10:04)
[2019-12-03] MEDS: THIAMINE HCL 100 MG TAB PO SCH (10:04)
[2019-12-03 11:55] LABS: Basophils # (auto) 0 10 ^3/uL (0-0.2); Basophils % (auto) 0.2 % (0.0-2.0); Eosinophils # (auto) 0 10 ^3/uL (0-0.8); Eosinophils % (auto) 0.2 % (0.0-7.0); Hematocrit 27.3 % (41.0-53.0); Lymphocytes % (auto) 5.4 % (10.0-50.0); Mean Corpuscular Hemoglobin 29.2 pg (28.0-32.0); Mean Corpuscular Hgb Conc. 32.8 g/dL (32.0-36.0); Mean Corpuscular Volume 88.9 fL (80.0-100.0); Monocytes # (auto) 0.7 10 ^3/uL (0-1.3); Monocytes % (auto) 3.7 % (0.0-12.0); Neutrophils # (auto) 17.3 10 ^3/uL (1.6-8.6); Neutrophils % (auto) 90.5 % (37.0-80.0); Platelet Count (auto) 159 10^3/uL (140-450); Red Blood Cells 3.07 10^6/uL (4.5-5.90); Red Cell Distribution Width 14.5 % (11.8-14.3); White Blood Cell 19.1 10^3/uL (4.4-10.8)
[2019-12-03 12:07] LABS: Albumin 2.4 g/dL (3.4-5.0); Calcium 7.3 mg/dL (8.5-10.1); Potassium 4.3 mmol/L (3.5-5.1)
[2019-12-03 12:10] LABS: BUN/Creatinine Ratio 45.7; Bilirubin, Total 0.3 mg/dL (0.2-1.0); Total Protein 4.7 g/dL (6.4-8.2)
[2019-12-03 13:00] VITALS: BP 112/79
[2019-12-03 17:19] VITALS: BP 98/70
[2019-12-03] MEDS ORDERED: FUROSEMIDE 20 MG/2 ML VIAL IV ONE (18:30)
[2019-12-03 22:15] VITALS: BP 102/67
[2019-12-04 05:00] VITALS: BP 101/75
[2019-12-04] MEDS: HYDROcodone-ACET 5/325MG TAB PO PRN ×2 (06:14→13:55)
[2019-12-04] MEDS: InsuLIN REG 1unit/0.01ml Soln (100units/ml) SC SCH ×4 (06:31→21:56)
[2019-12-04] MEDS: ACCU-CHEK COMFORT CURVE STRIP VI SCH ×4 (06:31→21:54)
[2019-12-04] MEDS: BUDESONIDE (INHALATION) 180 MCG IH IN SCH ×2 (07:46→23:16)
[2019-12-04] MEDS: ALBUTEROL SULF HFA 90MCG INH 200DOSE IN SCH ×3 (07:46→23:16)
[2019-12-04] MEDS: Glucerna Carbsteady SHAKE Stawberry 8oz PO SCH ×2 (08:01→18:00)
[2019-12-04 09:27] VITALS: BP 98/64
[2019-12-04] MEDS: FUROSEMIDE 20 MG/2 ML VIAL IV SCH (10:09)
[2019-12-04] MEDS: THIAMINE HCL 100 MG TAB PO SCH (10:09)
[2019-12-04] MEDS: ZINC SULFATE 220mg CAP or TAB PO SCH (10:09)
[2019-12-04] MEDS: MULTIPLE VITAMINS W/ MINERALS TAB PO SCH (10:10)
[2019-12-04] MEDS: ENOXAPARIN SOD 40 MG/0.4 ML SYRINGE SC SCH (10:10)
[2019-12-04] MEDS: chlordiazePOXIDE HCL 5 MG CAP PO SCH (10:10)
[2019-12-04] MEDS: DexAMETHasone 4 MG TAB PO SCH (10:10)
[2019-12-04 13:24] VITALS: BP 97/69
[2019-12-04] MEDS ORDERED: AZITHROMYCIN 500MG/ 250ML 250 ML IV ONE (13:30)
[2019-12-04] MEDS ORDERED: chlordiazePOXIDE HCL 5 MG CAP PO PRN (14:00)
[2019-12-04 17:00] VITALS: BP 95/65
[2019-12-04 22:00] VITALS: BP 100/62
[2019-12-05 05:00] VITALS: BP 103/65
[2019-12-05] MEDS: HYDROcodone-ACET 5/325MG TAB PO PRN (05:09)
[2019-12-05] MEDS: ACCU-CHEK COMFORT CURVE STRIP VI SCH ×4 (06:35→22:03)
[2019-12-05] MEDS: InsuLIN REG 1unit/0.01ml Soln (100units/ml) SC SCH ×4 (06:36→22:07)
[2019-12-05 06:41] LABS: Hematocrit 25.2 % (41.0-53.0); Hemoglobin 8.6 g/dL (13.5-17.5); Mean Corpuscular Hemoglobin 30.2 pg (28.0-32.0); Mean Corpuscular Hgb Conc. 34.2 g/dL (32.0-36.0); Mean Corpuscular Volume 88.3 fL (80.0-100.0); Platelet Count (auto) 137 10^3/uL (140-450); Red Blood Cells 2.86 10^6/uL (4.5-5.90); Red Cell Distribution Width 14.5 % (11.8-14.3); White Blood Cell 12.1 10^3/uL (4.4-10.8)
[2019-12-05 06:47] LABS: Basophils % (manual) 0 (0.0-2.0); Blast Cells 0; Eosinophils % (manual) 0 (0-7); Myelocytes % 0; Promyelocytes % 0; Reactive Lymphocytes 0
[2019-12-05 07:00] LABS: Albumin 2.3 g/dL (3.4-5.0); Calcium 7.3 mg/dL (8.5-10.1); Potassium 3.8 mmol/L (3.5-5.1)
[2019-12-05 07:03] LABS: Bilirubin, Total 0.4 mg/dL (0.2-1.0); Total Protein 4.8 g/dL (6.4-8.2)
[2019-12-05] MEDS: ALBUTEROL SULF HFA 90MCG INH 200DOSE IN SCH ×3 (07:24→23:24)
[2019-12-05] MEDS: BUDESONIDE (INHALATION) 180 MCG IH IN SCH ×2 (07:25→23:25)
[2019-12-05] MEDS: Glucerna Carbsteady SHAKE Stawberry 8oz PO SCH ×2 (08:00→18:17)
[2019-12-05 08:30] LABS: Band Neutrophils % (manual) 8; Lymphocytes % (manual) 8 (10.0-50.0); Metamyelocytes % 3; Monocytes % (manual) 6 (0-12)
[2019-12-05 09:02] VITALS: BP 94/61
[2019-12-05] MEDS: FUROSEMIDE 20 MG/2 ML VIAL IV SCH (10:00)
[2019-12-05] MEDS: ENOXAPARIN SOD 40 MG/0.4 ML SYRINGE SC SCH (10:00)
[2019-12-05] MEDS: AZITHROMYCIN 500MG/ 250ML 250 ML IV SCH (10:00)
[2019-12-05] MEDS: DexAMETHasone 4 MG TAB PO SCH (10:01)
[2019-12-05] MEDS: ZINC SULFATE 220mg CAP or TAB PO SCH (10:01)
[2019-12-05] MEDS: THIAMINE HCL 100 MG TAB PO SCH (10:01)
[2019-12-05] MEDS: MULTIPLE VITAMINS W/ MINERALS TAB PO SCH (10:01)
[2019-12-05] MEDS ORDERED: POTASSIUM CHL 20 Meq TABLET PO ONE (13:00)
[2019-12-05 13:04] VITALS: BP 95/67
[2019-12-05] MEDS ORDERED: FUROSEMIDE 20 MG/2 ML VIAL IV ONE (15:00)
[2019-12-05 16:57] VITALS: BP 112/76
[2019-12-05] MEDS: Pro-Stat SF 30ml Vanilla PO SCH (18:17)
[2019-12-05 18:46] VITALS: BP 112/76
[2019-12-05 22:00] VITALS: BP 107/64
[2019-12-06] VITALS (9 sets, daily range): BP systolic 92–119; BP diastolic 56–71
[2019-12-06] MEDS: InsuLIN REG 1unit/0.01ml Soln (100units/ml) SC SCH ×4 (06:33→21:39)
[2019-12-06] MEDS: ACCU-CHEK COMFORT CURVE STRIP VI SCH ×4 (06:33→21:25)
[2019-12-06] MEDS: HYDROcodone-ACET 5/325MG TAB PO PRN (06:53)
[2019-12-06] MEDS: ALBUTEROL SULF HFA 90MCG INH 200DOSE IN SCH ×3 (07:22→22:25)
[2019-12-06] MEDS: BUDESONIDE (INHALATION) 180 MCG IH IN SCH ×2 (07:22→22:25)
[2019-12-06] MEDS: Glucerna Carbsteady SHAKE Stawberry 8oz PO SCH ×2 (08:00→18:00)
[2019-12-06] MEDS: Pro-Stat SF 30ml Vanilla PO SCH ×2 (08:00→18:00)
[2019-12-06] MEDS: FUROSEMIDE 20 MG/2 ML VIAL IV SCH (10:00)
[2019-12-06] MEDS: AZITHROMYCIN 500MG/ 250ML 250 ML IV SCH (10:11)
[2019-12-06] MEDS: POTASSIUM CHL 20 Meq TABLET PO SCH (10:12)
[2019-12-06] MEDS: ZINC SULFATE 220mg CAP or TAB PO SCH (10:12)
[2019-12-06] MEDS: MULTIPLE VITAMINS W/ MINERALS TAB PO SCH (10:12)
[2019-12-06] MEDS: DexAMETHasone 4 MG TAB PO SCH (10:13)
[2019-12-06] MEDS: THIAMINE HCL 100 MG TAB PO SCH (10:13)
[2019-12-06] MEDS: ENOXAPARIN SOD 40 MG/0.4 ML SYRINGE SC SCH (10:14)
[2019-12-06] MEDS ORDERED: TEMAZEPAM 15 MG CAP PO PRN (13:30)
[2019-12-06] MEDS: guaiFENesin-CODEINE Liq 5 ML UD GT PRN (15:13)
[2019-12-06] MEDS ORDERED: FUROSEMIDE 40 MG/4 ML VIAL IV ONE (16:15)
[2019-12-07 05:00] VITALS: BP_SYST 100; BP_SYST 106; BP_DIAS 67; BP_DIAS 71
[2019-12-07] MEDS: ACCU-CHEK COMFORT CURVE STRIP VI SCH ×4 (06:40→21:45)
[2019-12-07] MEDS: InsuLIN REG 1unit/0.01ml Soln (100units/ml) SC SCH ×4 (06:41→21:46)
[2019-12-07] MEDS: ALBUTEROL SULF HFA 90MCG INH 200DOSE IN SCH ×3 (07:05→22:59)
[2019-12-07] MEDS: BUDESONIDE (INHALATION) 180 MCG IH IN SCH ×2 (07:05→22:59)
[2019-12-07] MEDS: Pro-Stat SF 30ml Vanilla PO SCH ×2 (08:00→18:08)
[2019-12-07] MEDS: Glucerna Carbsteady SHAKE Stawberry 8oz PO SCH ×2 (08:00→18:08)
[2019-12-07 09:00] VITALS: BP 91/61
[2019-12-07] MEDS: AZITHROMYCIN 500MG/ 250ML 250 ML IV SCH (09:57)
[2019-12-07] MEDS: MULTIPLE VITAMINS W/ MINERALS TAB PO SCH (09:57)
[2019-12-07] MEDS: THIAMINE HCL 100 MG TAB PO SCH (09:58)
[2019-12-07] MEDS: ZINC SULFATE 220mg CAP or TAB PO SCH (09:58)
[2019-12-07] MEDS: POTASSIUM CHL 20 Meq TABLET PO SCH (09:58)
[2019-12-07] MEDS: DexAMETHasone 4 MG TAB PO SCH (09:58)
[2019-12-07] MEDS: FUROSEMIDE 20 MG/2 ML VIAL IV SCH ×2 (09:58→11:19)
[2019-12-07] MEDS: ENOXAPARIN SOD 40 MG/0.4 ML SYRINGE SC SCH (09:59)
[2019-12-07 11:10] LABS: Basophils # (auto) 0 10 ^3/uL (0-0.2); Basophils % (auto) 0.3 % (0.0-2.0); Eosinophils # (auto) 0.1 10 ^3/uL (0-0.8); Eosinophils % (auto) 0.7 % (0.0-7.0); Hematocrit 27.4 % (41.0-53.0); Hemoglobin 9.2 g/dL (13.5-17.5); Lymphocytes # (auto) 1.1 10 ^3/uL (0.4-5.4); Lymphocytes % (auto) 9.6 % (10.0-50.0); Mean Corpuscular Hemoglobin 30.2 pg (28.0-32.0); Mean Corpuscular Hgb Conc. 33.5 g/dL (32.0-36.0); Monocytes # (auto) 0.3 10 ^3/uL (0-1.3); Monocytes % (auto) 2.7 % (0.0-12.0); Neutrophils # (auto) 9.7 10 ^3/uL (1.6-8.6); Neutrophils % (auto) 86.7 % (37.0-80.0); Nucleated Red Blood Cells % 0.3 %; Platelet Count (auto) 121 10^3/uL (140-450); Red Blood Cells 3.04 10^6/uL (4.5-5.90); Red Cell Distribution Width 14.8 % (11.8-14.3); White Blood Cell 11.2 10^3/uL (4.4-10.8)
[2019-12-07 11:21] LABS: BUN/Creatinine Ratio 31.5; Calcium 7.8 mg/dL (8.5-10.1); Potassium 3.5 mmol/L (3.5-5.1)
[2019-12-07 13:00] VITALS: BP 92/64
[2019-12-07] MEDS ORDERED: FUROSEMIDE 20 MG/2 ML VIAL IV ONE (13:45)
[2019-12-07 17:00] VITALS: BP 110/76
[2019-12-07 21:38] VITALS: BP 111/71
[2019-12-08 04:58] VITALS: BP 100/66
[2019-12-08] MEDS: InsuLIN REG 1unit/0.01ml Soln (100units/ml) SC SCH ×4 (06:06→22:36)
[2019-12-08] MEDS: ACCU-CHEK COMFORT CURVE STRIP VI SCH ×4 (06:06→22:36)
[2019-12-08] MEDS: Pro-Stat SF 30ml Vanilla PO SCH ×2 (08:00→18:30)
[2019-12-08] MEDS: Glucerna Carbsteady SHAKE Stawberry 8oz PO SCH ×2 (08:00→18:31)
[2019-12-08] MEDS: ALBUTEROL SULF HFA 90MCG INH 200DOSE IN SCH ×3 (08:41→22:29)
[2019-12-08] MEDS: BUDESONIDE (INHALATION) 180 MCG IH IN SCH ×2 (08:41→22:00)
[2019-12-08 09:00] VITALS: BP 88/57
[2019-12-08] MEDS: ZINC SULFATE 220mg CAP or TAB PO SCH (09:51)
[2019-12-08] MEDS: MULTIPLE VITAMINS W/ MINERALS TAB PO SCH (09:51)
[2019-12-08] MEDS: AZITHROMYCIN 250 MG TAB PO SCH (09:51)
[2019-12-08] MEDS: ENOXAPARIN SOD 40 MG/0.4 ML SYRINGE SC SCH (09:52)
[2019-12-08] MEDS: THIAMINE HCL 100 MG TAB PO SCH (09:52)
[2019-12-08] MEDS: POTASSIUM CHL 20 Meq TABLET PO SCH (09:52)
[2019-12-08] MEDS: FUROSEMIDE 20 MG/2 ML VIAL IV SCH (10:00)
[2019-12-08] MEDS: guaiFENesin-CODEINE Liq 5 ML UD GT PRN ×2 (11:46→20:44)
[2019-12-08 13:00] VITALS: BP 100/57
[2019-12-08 17:00] VITALS: BP 86/55
[2019-12-08 18:32] VITALS: BP 86/55
[2019-12-08 22:00] VITALS: BP 90/60
[2019-12-09 05:00] VITALS: BP 96/62
[2019-12-09] MEDS: InsuLIN REG 1unit/0.01ml Soln (100units/ml) SC SCH ×4 (06:13→22:00)
[2019-12-09] MEDS: ACCU-CHEK COMFORT CURVE STRIP VI SCH ×4 (06:13→22:00)
[2019-12-09] MEDS: Pro-Stat SF 30ml Vanilla PO SCH ×2 (08:00→18:00)
[2019-12-09] MEDS: Glucerna Carbsteady SHAKE Stawberry 8oz PO SCH ×2 (08:00→18:00)
[2019-12-09 09:00] VITALS: BP 100/62
[2019-12-09] MEDS: FUROSEMIDE 20 MG/2 ML VIAL IV SCH (10:00)
[2019-12-09] MEDS: DexAMETHasone 4 MG TAB PO SCH (10:01)
[2019-12-09] MEDS: THIAMINE HCL 100 MG TAB PO SCH (10:02)
[2019-12-09] MEDS: ENOXAPARIN SOD 40 MG/0.4 ML SYRINGE SC SCH (10:02)
[2019-12-09] MEDS: ZINC SULFATE 220mg CAP or TAB PO SCH (10:02)
[2019-12-09] MEDS: AZITHROMYCIN 250 MG TAB PO SCH (10:02)
[2019-12-09] MEDS: MULTIPLE VITAMINS W/ MINERALS TAB PO SCH (10:02)
[2019-12-09] MEDS: POTASSIUM CHL 20 Meq TABLET PO SCH (10:02)
[2019-12-09] MEDS: HYDROcodone-ACET 5/325MG TAB PO PRN (11:48)
[2019-12-09 13:00] VITALS: BP 101/71
[2019-12-09 14:28] VITALS: BP 110/56
[2019-12-09] MEDS: ALBUTEROL SULF HFA 90MCG INH 200DOSE IN SCH ×3 (15:43→22:48)
[2019-12-09] MEDS: BUDESONIDE (INHALATION) 180 MCG IH IN SCH ×2 (15:44→22:48)
[2019-12-09 17:00] VITALS: BP 105/61
[2019-12-09 22:00] VITALS: BP 89/60
[2019-12-10 05:00] VITALS: BP 98/66
[2019-12-10] MEDS: InsuLIN REG 1unit/0.01ml Soln (100units/ml) SC SCH ×4 (06:17→21:43)
[2019-12-10] MEDS: ACCU-CHEK COMFORT CURVE STRIP VI SCH ×4 (06:18→21:43)
[2019-12-10] MEDS: ALBUTEROL SULF HFA 90MCG INH 200DOSE IN SCH ×3 (07:00→23:08)
[2019-12-10] MEDS: BUDESONIDE (INHALATION) 180 MCG IH IN SCH ×2 (07:00→23:09)
[2019-12-10 07:43] LABS: Basophils # (auto) 0.1 10 ^3/uL (0-0.2); Basophils % (auto) 1.2 % (0.0-2.0); Eosinophils # (auto) 0 10 ^3/uL (0-0.8); Eosinophils % (auto) 0.2 % (0.0-7.0); Hematocrit 29.4 % (41.0-53.0); Hemoglobin 9.9 g/dL (13.5-17.5); Lymphocytes # (auto) 0.8 10 ^3/uL (0.4-5.4); Lymphocytes % (auto) 11.2 % (10.0-50.0); Mean Corpuscular Hemoglobin 30.4 pg (28.0-32.0); Mean Corpuscular Hgb Conc. 33.7 g/dL (32.0-36.0); Mean Corpuscular Volume 90.2 fL (80.0-100.0); Monocytes # (auto) 0.2 10 ^3/uL (0-1.3); Monocytes % (auto) 2.4 % (0.0-12.0); Neutrophils # (auto) 6.2 10 ^3/uL (1.6-8.6); Platelet Count (auto) 94 10^3/uL (140-450); Red Blood Cells 3.26 10^6/uL (4.5-5.90); Red Cell Distribution Width 16.4 % (11.8-14.3); White Blood Cell 7.3 10^3/uL (4.4-10.8)
[2019-12-10] MEDS: Glucerna Carbsteady SHAKE Stawberry 8oz PO SCH ×2 (08:00→18:19)
[2019-12-10] MEDS: Pro-Stat SF 30ml Vanilla PO SCH ×2 (08:00→18:20)
[2019-12-10 08:04] LABS: BUN/Creatinine Ratio 34.6; Calcium 7.9 mg/dL (8.5-10.1); Magnesium 2.5 mg/dL (1.6-2.6); Potassium 3.6 mmol/L (3.5-5.1)
[2019-12-10 09:00] VITALS: BP 109/73
[2019-12-10] MEDS: POTASSIUM CHL 20 Meq TABLET PO SCH (10:09)
[2019-12-10] MEDS: THIAMINE HCL 100 MG TAB PO SCH (10:09)
[2019-12-10] MEDS: FUROSEMIDE 20 MG/2 ML VIAL IV SCH (10:09)
[2019-12-10] MEDS: ZINC SULFATE 220mg CAP or TAB PO SCH (10:09)
[2019-12-10] MEDS: MULTIPLE VITAMINS W/ MINERALS TAB PO SCH (10:10)
[2019-12-10] MEDS: AZITHROMYCIN 250 MG TAB PO SCH (10:10)
[2019-12-10] MEDS: ENOXAPARIN SOD 40 MG/0.4 ML SYRINGE SC SCH (10:10)
[2019-12-10 13:00] VITALS: BP 103/68
[2019-12-10] MEDS ORDERED: ALBUMIN 25% 100 ML IV ONE (13:30)
[2019-12-10 17:00] VITALS: BP 105/70
[2019-12-10] MEDS: guaiFENesin-CODEINE Liq 5 ML UD GT PRN (20:03)
[2019-12-10 22:34] VITALS: BP 91/49
[2019-12-11] VITALS (7 sets, daily range): BP systolic 92–100; BP diastolic 58–69
[2019-12-11] MEDS: InsuLIN REG 1unit/0.01ml Soln (100units/ml) SC SCH ×4 (06:44→21:16)
[2019-12-11] MEDS: ACCU-CHEK COMFORT CURVE STRIP VI SCH ×4 (06:45→21:18)
[2019-12-11] MEDS: Pro-Stat SF 30ml Vanilla PO SCH ×2 (08:00→18:00)
[2019-12-11] MEDS: ALBUTEROL SULF HFA 90MCG INH 200DOSE IN SCH ×3 (08:01→21:00)
[2019-12-11] MEDS: BUDESONIDE (INHALATION) 180 MCG IH IN SCH ×2 (08:01→21:00)
[2019-12-11] MEDS: Glucerna Carbsteady SHAKE Stawberry 8oz PO SCH ×2 (09:36→18:00)
[2019-12-11] MEDS: THIAMINE HCL 100 MG TAB PO SCH (10:18)
[2019-12-11] MEDS: ZINC SULFATE 220mg CAP or TAB PO SCH (10:18)
[2019-12-11] MEDS: FUROSEMIDE 20 MG/2 ML VIAL IV SCH (10:18)
[2019-12-11] MEDS: POTASSIUM CHL 20 Meq TABLET PO SCH (10:19)
[2019-12-11] MEDS: DexAMETHasone 4 MG TAB PO SCH (10:19)
[2019-12-11] MEDS: MULTIPLE VITAMINS W/ MINERALS TAB PO SCH (10:19)
[2019-12-11] MEDS: ENOXAPARIN SOD 40 MG/0.4 ML SYRINGE SC SCH (10:19)
[2019-12-11] MEDS: HYDROcodone-ACET 5/325MG TAB PO PRN (17:46)
[2019-12-11] MEDS: guaiFENesin-CODEINE Liq 5 ML UD GT PRN (21:12)
[2019-12-12 05:00] VITALS: BP 102/69
[2019-12-12] MEDS: InsuLIN REG 1unit/0.01ml Soln (100units/ml) SC SCH ×3 (06:59→17:00)
[2019-12-12] MEDS: ACCU-CHEK COMFORT CURVE STRIP VI SCH ×3 (07:00→17:40)
[2019-12-12] MEDS: ALBUTEROL SULF HFA 90MCG INH 200DOSE IN SCH ×2 (07:11→15:01)
[2019-12-12] MEDS: BUDESONIDE (INHALATION) 180 MCG IH IN SCH (07:11)
[2019-12-12 07:41] LABS: Basophils # (auto) 0 10 ^3/uL (0-0.2); Basophils % (auto) 0.7 % (0.0-2.0); Eosinophils # (auto) 0 10 ^3/uL (0-0.8); Eosinophils % (auto) 0.1 % (0.0-7.0); Hematocrit 30.4 % (41.0-53.0); Hemoglobin 10.1 g/dL (13.5-17.5); Lymphocytes % (auto) 16.3 % (10.0-50.0); Mean Corpuscular Hemoglobin 29.9 pg (28.0-32.0); Mean Corpuscular Hgb Conc. 33.3 g/dL (32.0-36.0); Monocytes # (auto) 0.2 10 ^3/uL (0-1.3); Monocytes % (auto) 3.2 % (0.0-12.0); Neutrophils % (auto) 79.7 % (37.0-80.0); Platelet Count (auto) 93 10^3/uL (140-450); Red Blood Cells 3.38 10^6/uL (4.5-5.90); Red Cell Distribution Width 16.8 % (11.8-14.3); White Blood Cell 6.3 10^3/uL (4.4-10.8)
[2019-12-12 08:00] VITALS: BP 109/66
[2019-12-12] MEDS: Pro-Stat SF 30ml Vanilla PO SCH (08:00)
[2019-12-12 08:04] LABS: Albumin 2.9 g/dL (3.4-5.0); Calcium 8.3 mg/dL (8.5-10.1); Potassium 3.9 mmol/L (3.5-5.1)
[2019-12-12 08:09] LABS: Bilirubin, Total 0.4 mg/dL (0.2-1.0); Total Protein 6.2 g/dL (6.4-8.2)
[2019-12-12] MEDS ORDERED: THIA100T10 PO (09:07)
[2019-12-12] MEDS ORDERED: ALBUAER3 IN (09:07)
[2019-12-12] MEDS ORDERED: FURO20TA3 PO (09:07)
[2019-12-12] MEDS ORDERED: POTA10TA51 PO (09:07)
[2019-12-12] MEDS: POTASSIUM CHL 20 Meq TABLET PO SCH (09:47)
[2019-12-12] MEDS: FUROSEMIDE 20 MG/2 ML VIAL IV SCH (09:47)
[2019-12-12] MEDS: THIAMINE HCL 100 MG TAB PO SCH (09:47)
[2019-12-12] MEDS: ZINC SULFATE 220mg CAP or TAB PO SCH (09:47)
[2019-12-12] MEDS: MULTIPLE VITAMINS W/ MINERALS TAB PO SCH (09:47)
[2019-12-12] MEDS: ENOXAPARIN SOD 40 MG/0.4 ML SYRINGE SC SCH (09:48)
[2019-12-12] MEDS: Glucerna Carbsteady SHAKE Stawberry 8oz PO SCH (09:48)
[2019-12-12] MEDS ORDERED: METH4PAK PO (11:58)
[2019-12-12] MEDS ORDERED: PANT40TA2 PO (11:58)
[2019-12-12 12:00] VITALS: BP 100/58
[2019-12-12 12:16] VITALS: BP 109/66
[2019-12-12 17:00] VITALS: BP 96/60
== END 2019-12-12 17:40 | disposition home or self-care (01) | DRG 720 ==
LOC: ER 04:20 → EDBD 04:20 → OVERFLOW 04:21 → DOU IN ICU 10:13 → TELE-EAST 11-29 03:15 → EAST 12-06 13:31
PROVIDERS: ADMIT Internal Medicine; ATTEND Internal Medicine
PROC: 5A09357 Assistance with Respiratory Ventilation, Less than 24 Consecutive Hours, Continuous Positive Airway Pressure (ICD-10-PCS; 2019-11-15)
PROC: XW033E5 Introduction of Remdesivir Anti-infective into Peripheral Vein, Percutaneous Approach, New Technology Group 5 (ICD-10-PCS; 2019-11-16)
PROC: XW033H5 Introduction of Tocilizumab into Peripheral Vein, Percutaneous Approach, New Technology Group 5 (ICD-10-PCS; 2019-11-16)
PROC: XW033E5 Introduction of Remdesivir Anti-infective into Peripheral Vein, Percutaneous Approach, New Technology Group 5 (ICD-10-PCS; principal; 2019-11-17)
PROC: XW033E5 Introduction of Remdesivir Anti-infective into Peripheral Vein, Percutaneous Approach, New Technology Group 5 (ICD-10-PCS; 2019-11-18)
PROC: XW033E5 Introduction of Remdesivir Anti-infective into Peripheral Vein, Percutaneous Approach, New Technology Group 5 (ICD-10-PCS; 2019-11-19)
PROC: XW033E5 Introduction of Remdesivir Anti-infective into Peripheral Vein, Percutaneous Approach, New Technology Group 5 (ICD-10-PCS; 2019-11-20)
PROC: XW13325 Transfusion of Convalescent Plasma (Nonautologous) into Peripheral Vein, Percutaneous Approach, New Technology Group 5 (ICD-10-PCS; 2019-11-20)
PROC: XW13325 Transfusion of Convalescent Plasma (Nonautologous) into Peripheral Vein, Percutaneous Approach, New Technology Group 5 (ICD-10-PCS; 2019-12-06)
DX: A41.89 Other specified sepsis (principal); U07.1 COVID-19; J12.89 Other viral pneumonia; J96.01 Acute respiratory failure with hypoxia; E43 Unspecified severe protein-calorie malnutrition; E87.1 Hypo-osmolality and hyponatremia; E66.9 Obesity, unspecified; F10.239 Alcohol dependence with withdrawal, unspecified; R04.0 Epistaxis; Y90.9 Presence of alcohol in blood, level not specified; D69.6 Thrombocytopenia, unspecified; E87.5 Hyperkalemia; R73.03 Prediabetes; Z79.899 Other long term (current) drug therapy; Z68.30 Body mass index [BMI] 30.0-30.9, adult
CPT/HCPCS: 36415; 36600; 71045; 71275; 80048; 80053; 81001; 82040; 82728; 82805; 82962; 83036; 83605; 83615; 83735; 83880; 84132; 85007; 85025; 85027; 85379; 85610; 86141; 86850; 86900; 86901; 87040; 93005; 94640; 94660; 94762; 96365; 96367; 96372; 96375; 96376; 97110; 97116; 97163; 97530; G0378; J1100; J1815; J1956; J3490; P9047